=== PATIENT | female | born 2000 | race American Indian/Alaskan Native ===

== ENCOUNTER 2020-06-13 23:36 | Emergency (ER) | payer OTHER ==
[~2020-06-13] VITALS: Ht 152.4 cm; Wt 66.8 kg
[2020-06-13 23:43] VITALS: BP 130/69; TEMP 98.8
[2020-06-14 00:28] VITALS: PULSE 72
== END 2020-06-14 00:32 | disposition home or self-care (01) ==
LOC: COL.ER 23:36
DX: S93.402A Sprain of unspecified ligament of left ankle, initial encounter (principal); X50.1XXA Overexertion from prolonged static or awkward postures, initial encounter; Y92.009 Unspecified place in unspecified non-institutional (private) residence as the place of occurrence of the external cause

== ENCOUNTER 2022-07-23 01:44 | Emergency (ER) | payer BC ==
[~2022-07-23] VITALS: Ht 152.4 cm; Wt 69.1 kg
[2022-07-23 01:50] VITALS: TEMP 98
[2022-07-23] MEDS ORDERED: PREDNISONE20 MG PO (02:42)
[2022-07-23 03:04] VITALS: BP 112/78; PULSE 76
== END 2022-07-23 03:04 | disposition home or self-care (01) ==
LOC: COL.ER 01:44
DX: O99.511 Diseases of the respiratory system complicating pregnancy, first trimester (principal); J45.901 Unspecified asthma with (acute) exacerbation; J06.9 Acute upper respiratory infection, unspecified; Z28.310 Unvaccinated for COVID-19; Z3A.09 9 weeks gestation of pregnancy
CPT/HCPCS: J7512

== ENCOUNTER → 2024-01-27 | Outpatient (CLI) | payer MEDICAID ==
[~2024-01-27] MED LIST: Albuterol 0.083% Neb Soln 2.5 MG/3 ML UD IH ONE; GLUCOPHAGE500 MG/TAB PO; IBU600 MG PO; PREDNISONE20 MG PO
== END ==
LOC: COL.CARD 13:00
DX: J45.40 Moderate persistent asthma, uncomplicated (principal)